=== PATIENT | female | born 1985 | race Caucasian/White ===

== ENCOUNTER → 2019-12-19 | Outpatient (CLI) | payer BC, OTHER ==
[~2019-12-19] MED LIST: ACHYD1T PO; DOCU100T7 PO; IBP800T PO; LRT10T PO; PNV1CAPS13 PO; TRM50T PO
== END ==
LOC: LABNPT 15:08
PROVIDERS: ATTEND Family Medicine
DX: R05 Cough (principal); R50.9 Fever, unspecified; R51 Headache; M79.10 Myalgia, unspecified site; Z20.828 Contact with and (suspected) exposure to other viral communicable diseases
CPT/HCPCS: 87635